=== PATIENT | female | born 1940 | race Caucasian/White ===

== ENCOUNTER → 2019-11-26 10:38 | Outpatient (CLI) | payer MEDICARE, SELFPAY ==
--- NOTE | ~2019-11-26 | CT_ITS ---
EXAMINATION: CT abdomen pelvis wo/w con DATE: 11/26/2019 11:32 INDICATION: Microscopic hematuria. TECHNIQUE: Computed tomography (CT) of the abdomen and pelvis was performed without intravenous contr ast in supine position. CT of the abdomen and pelvis was then performed in prone position with a tota l of 130 mL Omnipaque-350 intravenous contrast using a double-bolus technique for simultaneous opacif ication of the renal parenchyma and renal collecting system. Automated exposure control and iterative reconstruction technique were employed. The dose-length product was 1026.06 mGy-cm. COMPARISON: None FINDINGS: Minimal atelectasis at the right posterior sulcus. Cardiomegaly. No pericardial effusion. 1.1 cm cyst in the right hepatic lobe. Gallbladder, spleen, pancreas and bilateral adrenal glands are normal. No rmal appendix. No abnormal bowel wall thickening or obstruction. Numerous colonic diverticula without focal adjacent inflammatory stranding to suggest acute diverticulitis. Uterus and bilateral adnexa a re unremarkable. No free intraperitoneal gas or fluid. No pathologically enlarged abdominal or pelvic lymphadenopathy. There is calcified atherosclerosis of the aorta and many of the other arteries. Sev ere lower lumbar spondylosis. Bilateral renal cysts the largest a 3.0 cm cyst in the right kidney with multiple additional signific antly smaller bilateral parenchymal and parapelvic cysts. Symmetric bilateral renal parenchymal enhan cement. No urolithiasis or hydronephrosis. The ureters are opacified in their entirety. There is a sm all filling defect along the proximal right ureter best appreciated on series 6, image 57 where it ap pears central with oblique configuration on coronal series 604, image 41 and sagittal series 605, justin ge 67. There is no change in course of the ureter at this location to suggest a fold or evident extri nsic compressing lesion. IMPRESSION: 1. Focal filling defect within the proximal right ureter with differential including either a low den sity renal stone, urothelial carcinoma or mucosal fold although no change in course of the ureters id entified to suggest this. Consider ureteroscopy for further evaluation. 2. Diverticulosis. 3. Cardiomegaly. Reviewed, dictated and finalized at location B. IMPRESSION: 1. Focal filling defect within the proximal right ureter with differential incl uding either a low density renal stone, urothelial carcinoma or mucosal fold al though no change in course of the ureters identified to suggest this. Consider ureteroscopy for further evaluation. 2. Diverticulosis. 3. Cardiomegaly.
[2019-11-26 11:07] LABS: Estimated Glomerular Filt Rate > 60
== END ==
PROVIDERS: PCP Internal Medicine; Visit Provider Urology
DX: R31.29 Other microscopic hematuria (principal); K57.30 Diverticulosis of large intestine without perforation or abscess without bleeding; I51.7 Cardiomegaly
CPT/HCPCS: 36415; 74178; Q9967

== ENCOUNTER 2020-01-04 05:36 | Outpatient (CLI) | payer MEDICARE, SELFPAY ==
[2020-01-04 18:34] LABS: SARS-CoV-2 RNA PCR Negative
== END 2020-01-04 05:37 | disposition home or self-care (01) ==
LOC: ANHCOVIDDT 05:37
PROVIDERS: PCP Internal Medicine; Visit Provider Urology
DX: Z01.818 Encounter for other preprocedural examination (principal); Z11.59 Encounter for screening for other viral diseases; R31.9 Hematuria, unspecified
CPT/HCPCS: 87635; U0003

== ENCOUNTER 2020-01-04 07:53 | Outpatient (CLI) | payer MEDICARE, SELFPAY ==
--- NOTE | 2020-01-04 07:59 | ECG_ITS ---
Measurements Intervals [place] Rate: 79 P: 79 IN: 177 QRS: 38 QRSD: 77 T: 75 QT: 347 QTc: 399 Interpretive Statements SINUS RHYTHM DELAYED PRECORDIAL R/S TRANSITION BORDERLINE ST-T WAVE ABNORMALITY- HIGH LATERAL LEADS BASELINE ARTIFACT- I, II, III, AVR, AVL, AVF, V1-V3 BORDERLINE ECG Electronically Signed On 01-04-2020 8:50:19 CDT by Gerardo Norris D.O.
== END 2020-01-04 07:54 | disposition home or self-care (01) ==
PROVIDERS: PCP Internal Medicine; Visit Provider Urology
DX: Z01.810 Encounter for preprocedural cardiovascular examination (principal); R31.9 Hematuria, unspecified
CPT/HCPCS: 93005

== ENCOUNTER 2020-01-06 02:30 | Day surgery (SDC) | payer MEDICARE, SELFPAY ==
[2020-01-03 14:42] VITALS: BMI 23.9
--- NOTE | 2020-01-04 09:16 | P.HP_ITS ---
History of Present Illness History of Present Illness Consent: Risks, benefits, and alternatives have been discussed and questions answered. Patient agrees to proceed with procedure. Chief complaint: hematuria Narrative: Arcelia Zaman is a 79 year old female who recently underwent evaluation in our office for microscopic hematuria. CT abdomen and pelvis with and without contrast showed possible filling defect in her proximal right ureter. Her upper urinary tracts were otherwise unremarkable. She is scheduled now for cystoscopy with right ureteroscopy and possible ureteral biopsy. Review of Systems 2 Cardiovascular: Cardiovascular: Denies chest pain, Denies lightheadedness, Denies palpitations and Denies dyspnea Respiratory: Respiratory: Denies dyspnea Gastrointestinal: Gastrointestinal: Denies diarrhea, Denies nausea and Denies vomiting Genitourinary: Genitourinary: Denies hematuria and Denies dysuria Endocrine: Endocrine: Denies palpitations Meds Home Medications and Allergies Home Medications Medication Instructions Recorded Confirmed Type lisinopril 40 mg PO DAILY 01/03/20 01/03/20 History simvastatin 20 mg PO DAILY 01/03/20 01/03/20 History Allergies Allergy/AdvReac Type Severity Reaction Status Date / Time meperidine Allergy Unknown Nausea and Unverified 01/03/20 14:41 Vomiting propoxyphene Allergy Unknown Nausea and Unverified 01/03/20 14:41 Vomiting Exam Const: General: no acute distress Resp: Effort & Inspection: normal respiratory effort GI: Inspection: non-distended GI Palp: No abdominal tenderness and No Guarding due to palpation present (GI) Auscultation: normal bowel sounds Assessment and Plan Assessment and plan (1) Microscopic hematuria: Code(s): R31.29 - Other microscopic hematuria Status: Acute Assessment and Plan: * Cystoscopy with right retrograde pyelogram, right ureteroscopy with p ossible biopsy.
--- NOTE | ~2020-01-06 | XR_ITS ---
XR retrograde pyelogram RT DATE: 01/06/2020 07:59 INDICATION: Microscopic hematuria. Focal filling defect suggested in proximal right ureter on 12/13/[address] abdomen pelvis examination TECHNIQUE: Multiple spot C-arm right retrograde pyelogram images 42.4 seconds fluoroscopy time [id number] mGym2 COMPARISON: 11/26/2019 CT abdomen pelvis without and subsequently with IV contrast material FINDINGS: No right ureteral stricture or filling defect is identified. IMPRESSION: No right ureteral stricture or filling defect is identified. Reviewed, dictated and finalized at [facility]. Reviewed, dictated and finalized at location A.
[2020-01-06] MEDS: LACTATED RINGERS 1,000 ML 30 ML IV CONT ×2 (06:30→08:15)
--- NOTE | 2020-01-06 06:34 | WPDANESEPPF ---
Anes - Initial Pre Proc Eval Procedure: Operation Date: 01/06/20 07:30 Proposed Procedures p Cystoscopy, Right Retrograde Pyelogram, Right Ureteroscopy, Bladder Biopsy - Real Méndez MD Date/Time: 01/06/20 06:34 Surgeon: Real Méndez MD Pre Op Diagnosis: hematuria Patient Data Age: 79 Gender: F Height: 5 ft 4 in Weight: 62.4 kg Allergies Allergy/AdvReac Type Severity Reaction Status Date / Time meperidine AdvReac Unknown Nausea and Verified 01/06/20 06:15 Vomiting propoxyphene AdvReac Unknown Nausea and Verified 01/06/20 06:15 Vomiting Home Medications Medication Instructions Recorded Confirmed Type lisinopril 40 mg PO DAILY 01/03/20 01/06/20 History simvastatin 20 mg PO DAILY 01/03/20 01/06/20 History Patient hx anesthesia problems: none Family hx anesthesia problems: none PMFSH Past Medical History Medical History Hyperlipidemia Hypertension Anes - Eval Final PreProcedure Day of Procedure 01/06/20 06:34 Patient weight: normal Heart: regular rate and rhythm Lungs: clear to auscultation Airway: Mallampati scale class 1 Neurological: other (alert) Last oral intake: >/= 8 hours ASA classification: III Emergent: no Anesthetic plan: proceed Anesthesia type and monitoring: general LMA and standard monitoring Other findings: poor exercise tolerance Informed Consent: The patient's anesthetic plan and its attendant risks and benefits were discussed with the patient/family/POA. Questions were solicited and answers provided to the satisfaction of the patient/family/POA.
[2020-01-06 06:37] VITALS: BP 184/84; PULSE 84; RESP 16; TEMP 36.8; O2SAT 100
--- NOTE | 2020-01-06 07:05 | WPDHPUPDATE1 ---
History and Physical Update Update Date/Time: 01/06/20 07:05 History and Physical has been reviewed, including an updated exam of the patient. There are NO changes in the patient's condition. Risks, benefits, and alternatives have been discussed and questions answered. Patient agrees to proceed with procedure.
[2020-01-06] MEDS: ceFAZolin 2 GM/D5W 50 ML 2 GM/50 ML BAG IVPB (07:24)
[2020-01-06] MEDS: LIDOCAINE HCL 2% GEL UROJET 10 ML PKG MUCOUS MEM (07:39)
[2020-01-06 08:05] VITALS: BP 161/65; PULSE 70; RESP 14; TEMP 36.4; O2SAT 100
--- NOTE | 2020-01-06 08:18 | PM.PROC ---
Procedure Note - Detailed Date of procedure: 01/06/20 Pre-op diagnosis: Microhematuria Post-op diagnosis: same Procedure performed: 1. Cystoscopy with right retrograde pyelography. 2. Right ureterosocpy. Description of procedure: The patient was brought to the operative suite where she is prepped and draped in a routine sterile fashion while in the dorsal lithotomy position after the uneventful induction of a general LMA anesthetic. A 19F rigid cystoscope was placed in the bladder. Urine was collected for cytology. The patient had no evidence of urethral stricture or bladder neck contracture. The bladder mucosa was endoscopically normal without hyperemia or neoplasm. There was a single, orthotopic ureteral orifice bilaterally. A 0.035 glidewire was advanced into the right renal pelvis under fluoroscopy. The distal ureter was dilated with an 8F/10F ureteral dilator. Ureteroscopy was undertaken with a flexible digital ureteroscope. The entire collecting system and right ureter was carefully inspected and found to be without any mucosal abnormalities - no hyperemia, polyps, neoplasm or other findings of significance. There is perhaps a very wide caliber stricture of the proximal right ureter but, again, no significant pathology. Given the normal appearance to her upper tract I opted not to obtain biopsies. The patient's bladder was emptied and he was taken to the recovery room having tolerated this procedure well. Anesthesia: GLMA Surgeon: Real Méndez MD Estimated blood loss (mL): 0 Drains: No Packing: No Pathology: yes (Urine cytology) Complications: No immediate complications Condition: stable Disposition: PACU
[2020-01-06 08:20] VITALS: BP 163/71; PULSE 60; RESP 17; O2SAT 100
[2020-01-06 08:35] VITALS: BP 160/77; PULSE 66; RESP 18; O2SAT 97
[2020-01-06 08:50] VITALS: BP 188/63; PULSE 56; RESP 18
[2020-01-06 09:20] VITALS: BP 176/70; PULSE 57; RESP 18
== END 2020-01-06 09:31 | disposition home or self-care (01) ==
PROVIDERS: PCP Internal Medicine; Visit Provider Urology
PROC: (CPT 52352; principal; 2020-01-06 07:30)
DX: R31.29 Other microscopic hematuria (principal); I10 Essential (primary) hypertension; E78.5 Hyperlipidemia, unspecified
CPT/HCPCS: 52005; 74420; 87635; 88108; 93005; A9270; C1769; C1887; J0690; J1100; J2405; J2704; J3010; J7120; Q9966; U0003

== ENCOUNTER 2025-04-21 11:57 | Outpatient (CLI) | payer MEDICARE, SELFPAY ==
--- NOTE | ~2025-04-21 | XR_ITS ---
EXAMINATION: XR wrist RT min 3V, 04/21/2025 12:15 CDT HISTORY: Pain in rt wrist, swelling, chronic getting worse COMPARISON: No comparisons available. Findings: There is a healing fracture of the ulnar styloid process. Moderate degenerative changes first metacarpocarpal joint with minimal degenerative changes of the carpal joints. Soft tissues unremarkable. Impression: Healing fracture. Reviewed, dictated and finalized at location A. Impression: Healing fracture.
== END 2025-04-21 11:58 | disposition home or self-care (01) ==
PROVIDERS: PCP Internal Medicine; Visit Provider Internal Medicine
DX: S52.614D Nondisplaced fracture of right ulna styloid process, subsequent encounter for closed fracture with routine healing (principal); X58.XXXD Exposure to other specified factors, subsequent encounter
CPT/HCPCS: 73110